=== PATIENT | female | born 1990 | race Caucasian/White ===

== ENCOUNTER 2020-05-17 15:48 | Emergency (ER) | payer SELFPAY ==
[~2020-05-17] VITALS: Ht 165.1 cm; Wt 72.6 kg
--- NOTE | 2020-05-17 16:14 | NUR ---
[id number] TO ER BED 23. AAOX4. NOT IN RESP DISTRESS, BREATHING EVEN AND UNLABORED. AMBULATORY. BROUGHT IN FOR INTERMITENT DIFFICULTY SWALLOWING SINCE YESTERDAY AND LAST EPISODE STARTED THIS AFTERNOON AT 1500 WHILE DRIVING. PT STATES THAT THIS HAPPENED FROM BEFORE AND IGNORE IT BUT TODAY IT IS WORST AND FEELS HER THROAT IS THIGHT. PT IS TALKING IN FULL SENTENCES. NO DROOLING NOTED. NO NEURO DEFICIT NOTED. PT APPEARS ANXIOUS UPON PRESENTATION. AWAITING MD FOR PADMAJA
[2020-05-17] MEDS ORDERED: DEXAMETHASONE SOD PHOSPHATE 10 MG/ML VIAL IM ONE (17:00)
[2020-05-17] MEDS ORDERED: diphenhydrAMINE HCL 50 MG CAPSULE PO ONE (17:00)
[2020-05-17] MEDS ORDERED: diphenhydrAMINE HCL 50 MG CAPSULE ONE (17:36)
[2020-05-17] MEDS ORDERED: DEXAMETHASONE SOD PHOSPHATE 10 MG/ML VIAL ONE (17:36)
--- NOTE | 2020-05-17 17:58 | NUR ---
Patient discharged to home in stable condition. Written and verbal after care instructions given. Patient verbalizes understanding of instruction. Pt ambulatory with a steady gait
[2020-05-17 18:34] VITALS: BP 115/76
== END 2020-05-17 17:59 | disposition home or self-care (01) ==
LOC: ER 15:48
DX: T78.49XA Other allergy, initial encounter (principal); X58.XXXA Exposure to other specified factors, initial encounter
CPT/HCPCS: 70360; 71045; 96372; 99284; J1100; Q0163